=== PATIENT | male | born 2000 | race Caucasian/White ===

== ENCOUNTER 2024-01-11 23:59 | Emergency (ER) | payer OTHER ==
[~2024-01-11] VITALS: Ht 182.9 cm; Wt 84.1 kg
[2024-01-12 00:02] VITALS: TEMP 98.3
[2024-01-12 02:23] VITALS: BP 136/70; PULSE 109; RESP 16; O2SAT 97
== END 2024-01-12 02:26 | disposition home or self-care (01) ==
LOC: ER 01-12
DX: S92.415A Nondisplaced fracture of proximal phalanx of left great toe, initial encounter for closed fracture (principal); R00.0 Tachycardia, unspecified; X58.XXXA Exposure to other specified factors, initial encounter; Y93.89 Activity, other specified; Y92.89 Other specified places as the place of occurrence of the external cause; Y99.8 Other external cause status
CPT/HCPCS: 73660; 93005; 99283